=== PATIENT | male | born 1965 | race Caucasian/White ===

== ENCOUNTER 2024-06-18 07:54 | Outpatient (CLI) | payer BC, SELFPAY | END 2024-06-18 07:55 | disposition home or self-care (01) | LOC: INJ CL 07:58 | PROVIDERS: PCP Internal Medicine; Visit Provider Family Medicine | DX: M16.0 Bilateral primary osteoarthritis of hip (principal); M25.551 Pain in right hip; M25.552 Pain in left hip | CPT/HCPCS: 20610; 77002; J0702; Q9966 ==

== ENCOUNTER 2024-08-27 07:54 | Outpatient (CLI) | payer BC, SELFPAY | END 2024-08-27 07:55 | disposition home or self-care (01) | LOC: INJ CL 07:56 | PROVIDERS: PCP Internal Medicine; Visit Provider Family Medicine | DX: M54.16 Radiculopathy, lumbar region (principal); M51.369 Other intervertebral disc degeneration, lumbar region without mention of lumbar back pain or lower extremity pain | CPT/HCPCS: 62323; Q9966 ==

== ENCOUNTER 2024-10-01 08:17 | Day surgery (SDC) | payer BC, SELFPAY ==
[2024-10-01] VITALS (28 sets, daily range): BP systolic 105–186; BP diastolic 63–92; PULSE 62–103; RESP 14–18; TEMP 35.9–36.8; O2SAT 92–99; BMI 33.2
[2024-10-01] MEDS: LACTATED RINGERS 1000 ML 1,000 ML 100 ML IV ×2 (08:25→12:05)
[2024-10-01] MEDS: OXYCODONE (CR) 10 MG TAB.ER.12H PO (08:40)
[2024-10-01] MEDS: ACETAMINOPHEN 500 MG TABLET 1000 MG PO ×3 (08:40→20:23)
[2024-10-01] MEDS: CELECOXIB 200 MG CAPSULE PO ×2 (08:40→20:22)
[2024-10-01] MEDS: SODIUM CHLORIDE 0.9 % (FLUSH) 10 ML SYRINGE IVF ×2 (08:57→18:27)
[2024-10-01] MEDS: MIDAZOLAM HCL 1 MG/ML inj IVP (09:50)
--- NOTE | 2024-10-01 10:00 | SUR.PREOP ---
TIME?OUT:?3675 PT/Olivia MORTON RN/Sushma ALEXANDRA MDA?VERIFICATION?OF?SURGICAL?SITE,?PROCEDURE,?AND?CONSENT OBTAINED?PRIOR?TO?INVASIVE?PROCEDURE.
--- NOTE | 2024-10-01 10:04 | P.NB_ITS ---
Nerve Block Nerve Block Time Seen by Provider: 09:50 Date Seen: 10/01/24 Type of block requested by surgeon for post-operative analgesia: DEVIN/LFCN Side: right Time out performed: Yes Verification of patient name: Yes Verification of date of : Yes Site marking: site marked Name of person performing procedure: [place] Continuous monitoring Was continuous monitoring of O2 sat, B/P, nuclear monitoring technician, recorded every 15 minutes?: Yes Procedure Checklist: sterile prep, needles and gloves Ultrasound guided. Images saved: Yes Medications given in 5ml increments after negative aspiration: Ropivicaine %: 0.5 mL: 30 Needle gauge: 20 Precedex (mcg): 25 Patient tolerated procedure well: Yes Additional comments: Needle noted below psoas tendon needle noted adjacent to LFCN Block Charges Block Charge (with Pro Fee): Other Periph Nerve Block Use of Ultrasound Machine for Block: Yes- US Guidance/pain block
--- NOTE | 2024-10-01 10:04 | P.ANES_ITS ---
Anesthesia Charges Start Date/Time Anesthesia Start Date: 10/01/24 Anesthesia Start Time: 10:32 Stop Date/Time Anesthesia Stop Date: 10/01/24 Anesthesia Stop Time: 13:13 Coding CPT Codes CPT Codes: ANESTH HIP ARTHROPLASTY - 80359 ([id number]) P2 - PATIENT W/MILD SYST DISEASE, QK - RACK CLEANER 2-4 CNCRNT ANES PROC, QX - POLYSOMNOGRAPHER SVC W/ MD MED DIRECTION
--- NOTE | 2024-10-01 10:04 | W.ANESCHARGE ---
Anesthesia Charges Start Date/Time Anesthesia Start Date: 10/01/24 Anesthesia Start Time: 10:32 Stop Date/Time Anesthesia Stop Date: 10/01/24 Anesthesia Stop Time: 13:13 Coding CPT Codes CPT Codes: ANESTH HIP ARTHROPLASTY - 91703 ([id number]) P2 - PATIENT W/MILD SYST DISEASE, QK - ADVANCED MANUFACTURING VICE PRESIDENT 2-4 CNCRNT ANES PROC, QX - PEOPLESOFT HRMS DEVELOPER SVC W/ MD MED DIRECTION
--- NOTE | 2024-10-01 10:30 | CRLHL7_ITS ---
For Patients: As a result of the Cures Act, medical imaging exams and procedure reports are released immediately into your electronic medical record. You may view this report before your referring provider. If you have questions, please contact your health care provider. Indication: Hip replacement surgery Technique: AP hip fluoroscopic images. Fluoroscopy time 65.8 seconds. Findings/Impression: Hardware from a right total hip arthroplasty is in satisfactory position. Dictated by Manohar Vaughan MD @ 10/01/2024 12:48:45 PM (Electronically Signed)
[2024-10-01] MEDS: TRANEXAMIC ACID 100 MG/ML INJ 1000 MG IV (10:45)
--- NOTE | 2024-10-01 12:26 | CRLHL7_ITS ---
For Patients: As a result of the Cures Act, medical imaging exams and procedure reports are released immediately into your electronic medical record. You may view this report before your referring provider. If you have questions, please contact your health care provider. Indication: Postop CARLIN Technique: AP hip centered pelvis and lateral view right hip Findings/Impression: Hardware from a right total hip arthroplasty is in satisfactory position. Bone alignment is normal. No sign of acute fracture. Postop changes are within normal limits. Dictated by Manohar Vaughan MD @ 10/02/2024 10:21:50 AM (Electronically Signed)
--- NOTE | 2024-10-01 12:28 | P.ORPRC_ITS ---
Procedure Note Date of procedure: 10/01/24 Procedure: PREOPERATIVE DIAGNOSIS: Right hip osteoarthritis POSTOPERATIVE DIAGNOSIS: Right hip osteoarthritis NAME OF OPERATION: Right total hip arthroplasty SURGEON: Marco Chan MD MANAGER MARITIME: Jo Huggins PA-C, TAM Jean Baptiste IMPLANTS: 1. [employer] Vernon # 56 sector ingrowth cup 2. 36 x 56 +4 neutral polyethylene 3. Actis # 5 standard collared ingrowth stem 4. 36 + 1.5 ceramic femoral head ANESTHESIA: General ESTIMATED BLOOD LOSS: 300 cc COMPLICATIONS: None SPECIMENS: None DRAINS: None PREOPERATIVE ANTIBIOTICS: Ancef 2 g INDICATIONS: The patient is a 59-year-old with a longstanding history of robert re, unrelenting right hip pain secondary to end-stage right hip osteoarthritis. Despite appropriate nonoperative management, including activity modification, use of an assist device, anti-inflammatories, [id number] pain medication, physical therapy and injections, they continue to have pain and disability. Operative intervention was offered. The risks, benefits and expected outcomes were discussed in detail. These included but were not limited to: Infection, bleeding, injury to blood vessel or nerve, venous thromboembolism. All questions were answered to their satisfaction. Use of an preschool assistant teacher was necessary throughout the case for patient positioning and safety, soft tissue retraction and closure. PROCEDURE: The patient was placed supine on the [place] table. General Anesthesia was administered. The preschool assistant teacher made sure the patient was properly positioned. The right hip was prepped and draped in the usual sterile fashion. The image intensifier was brought in for a perfect AP pelvis and a perfect double tear drop AP view of each hip which were used for intraoperative templating with our fluoroscopic guide. A bikini incision was made parallel to the hip flexion crease. The preschool assistant teacher retracted the soft tissues to protect them. Subcutaneous dissection was taken with electrocautery to the superficial fascia. The fascia was divided in line with the incision. Blunt dissection was carried medially to the tensor fascia gurjit and sartorius interval. Deep dissection was carried with electrocautery. The circumflex vessels were cauterized and divided. The capsule was exposed and then divided in a T-fashion, tagged with #1 FiberWire sutures. Retractors were placed in the joint, held by the preschool assistant teacher. The corkscrew was placed in the femoral head. The neck cut was made in the subcapital region. We made a second neck cut more distal. The napkin ring of bone was removed. The femoral head was removed intact. Acetabular retractors were placed, held by the preschool assistant teacher. The labrum was sharply debrided. The capsule was released. The 43 mm reamer was used to the true medial wall. We then enlarged in 2 mm increments using the image intensifier for our reamer placement. We impacted the cup which had excellent purchase. We placed the polyethylene. Attention was then turned to the proximal femur. The limb was placed in 140 degrees of external rotation, maximum extension and adduction. The capsule was released to allow us to deliver the femur into the wound and complete the femoral side. Retractors were held by the preschool assistant teacher throughout the femoral preparation. The box packer and canal finder were used. Broaches were used to a stable size. The calcar reamer was used. Trial components were placed. The hip was reduced and was found to be stable with appropriate soft tissue tension. Length and offset had been nicely restored using the image intensifier and our fluoroscopic guide. Trial components were removed. The stem was impacted. We placed the femoral head. Again, the hip was reduced and was found to be stable with appropriate soft tissue tension. Length and offset had been nicely restored. The preschool assistant teacher did a three minute dilute Betadine solution soak. The preschool assistant teacher irrigated the wound with 3 liters of normal saline via pulse lavage. The preschool assistant teacher repaired the anterior capsule with a #1 Vicryl and our previously placed Ethibond sutures. The preschool assistant teacher closed the fascia over the tensor fascia gurjit with a #1 PDO Stratafix, subcutaneous tissues with 2-0 Vicryl, skin with a running 3-0 Stratafix and glue. A dry dressing was applied by the preschool assistant teacher. Sponge and needle counts were correct x 2. The patient tolerated the procedure well; there were no apparent complications. They were awakened and extubated in the operating room, sent to the Post-Anesthesia Care Unit in satisfactory condition. PLAN: 1. The patient will be mobilized with physical therapy, weight-bearing as tolerates 2. Xarelto x 5 days then aspirin x 30 days will be used for DVT prophylaxis 3. The patient will be discharged once medically appropriate
--- NOTE | 2024-10-01 13:11 | P.ANES_ITS ---
Anesthesia Charges Start Date/Time Anesthesia Start Date: 10/01/24 Anesthesia Start Time: 10:32 Stop Date/Time Anesthesia Stop Date: 10/01/24 Anesthesia Stop Time: 13:13 Coding CPT Codes CPT Codes: ANESTH HIP ARTHROPLASTY - 66164 ([id number]) P2 - PATIENT W/MILD SYST DISEASE, QK - MILLING MACHINE OPERATOR 2-4 CNCRNT ANES PROC
--- NOTE | 2024-10-01 13:11 | W.ANESCHARGE ---
Anesthesia Charges Start Date/Time Anesthesia Start Date: 10/01/24 Anesthesia Start Time: 10:32 Stop Date/Time Anesthesia Stop Date: 10/01/24 Anesthesia Stop Time: 13:13 Coding CPT Codes CPT Codes: ANESTH HIP ARTHROPLASTY - 70926 ([id number]) P2 - PATIENT W/MILD SYST DISEASE, QK - BODY TECHNICIAN/PAINTER 2-4 CNCRNT ANES PROC
[2024-10-01] MEDS: ONDANSETRON 2 MG/ML inj 4 MG IVP ×2 (13:50→15:37)
[2024-10-01] MEDS: LACTATED RINGERS 1000 ML 1,000 ML 75 ML IV (14:16)
[2024-10-01] MEDS: CEFAZOLIN 2 GM in 0.9 % SODIUM CHLORIDE Mini-bag 100 ML IVPB (16:58)
--- NOTE | 2024-10-01 17:52 | PM.IMCN1 ---
Date of Consult Patient: Cara Patient Consult date: 10/01/24 Requesting Physician: Orthopedics Primary Care Provider: Mone Melendez MD Consult Narrative Narrative: Brent Ralph is a 59 year old male admitted to the hospital for right hip arthroplasty. Procedure performed by Dr. Chan. No complications. He request consultation for management of medical problems following surgery. Patient reports generally doing well after surgery except having persisting nausea and vomiting. He has had this after previous surgeries as well. Pain is well controlled. No shortness of breath. He was feeling well prior to surgery other than his hip pain. He also was having urinary retention postoperatively he was straight cath for 700 mL of urine. Patient does note that he has had some urinary frequency and nocturia as a chronic problem. He has sleep apnea and has brought his home CPAP to the hospital. He has diabetes mellitus. He reports blood sugars have been generally well controlled. He does not check his blood sugars regularly at home. Hemoglobin A1c was 7.3 on September 04. Review of Systems Narrative: He has had no other health concerns, recent illnesses or injuries. [facility] Medical History (Updated 10/01/24 @ 18:04 by Ricardo Garza MD) Urinary retention ?R33.9 - Retention of urine, unspecified (ICD-10) Type 2 diabetes mellitus ?E11.9 - Type 2 diabetes mellitus without complications (ICD-10) Vertigo ?R42 - Dizziness and giddiness (ICD-10) Hearing loss ?H91.90 - Unspecified hearing loss, unspecified ear (ICD-10) Osteoarthritis of right hip ?M16.11 - Unilateral primary osteoarthritis, right hip (ICD-10) Osteoarthritis of left hip ?M16.12 - Unilateral primary osteoarthritis, left hip (ICD-10) Chronic low back pain ?M54.50 - Low back pain, unspecified (ICD-10) ?G89.29 - Other chronic pain (ICD-10) RIVER (obstructive sleep apnea) ?G47.33 - Obstructive sleep apnea (adult) (pediatric) (ICD-10) Depression ?F32.A - Depression, unspecified (ICD-10) Hypertension ?I10 - Essential (primary) hypertension (ICD-10) Social anxiety disorder ?F40.10 - Social phobia, unspecified (ICD-10) Lumbar facet arthropathy ?M47.816 - Spondylosis without myelopathy or radiculopathy, lumbar region (ICD-10) Lumbar spondylosis ?M47.816 - Spondylosis without myelopathy or radiculopathy, lumbar region (ICD-10) Lumbar radiculopathy ?M54.16 - Radiculopathy, lumbar region (ICD-10) Chronic bilateral low back pain without sciatica ?M54.50 - Low back pain, unspecified (ICD-10) ?G89.29 - Other chronic pain (ICD-10) Tinnitus, bilateral ?H93.13 - Tinnitus, bilateral (ICD-10) Allergic rhinitis, cause unspecified ?J30.9 - Allergic rhinitis, unspecified (ICD-10) Surgical History (Updated 10/01/24 @ 17:59 by Ricardo Garza MD) History of total right hip arthroplasty (10/01/24) ?Z96.641 - Presence of right artificial hip joint (ICD-10) History of arthroscopy of right shoulder (~2009) ?Z98.890 - Other specified postprocedural states (ICD-10) S/P ACL reconstruction (1978) ?Z98.890 - Other specified postprocedural states (ICD-10) S/P arthroscopic knee surgery (1982) ?Z98.890 - Other specified postprocedural states (ICD-10) Family History (Updated 10/01/24 @ 18:00 by Ricardo Garza MD) Father Diabetes Melanoma Mother Stroke Social History (Updated 10/01/24 @ 18:01 by Ricardo Garza MD) Narrative: He lives with his in [place]. He does not smoke. He does not drink alcohol. What is your current living situation?: I presently have a place to live Smoking Status: Never smoker Do you use any of these nicotine containing products: None Second hand tobacco smoke exposure: No How often do you have a drink containing alcohol: never AUDIT-C Alcohol total score: 0 Non-prescribed substance use: denies use Caffeine: Yes Meds Home Medications and Allergies Home Medications ?Medication ?Instructions ?Recorded ?Confirmed ?Type atorvastatin 20 mg tablet 20 mg PO DAILY 08/01/24 10/01/24 History azelastine 137 mcg (0.1 %) nasal 2 spray intranasal BID 08/01/24 10/01/24 History spray celecoxib 200 mg capsule 200 mg PO BID 08/01/24 10/01/24 History Held on 10/01/24. Instructions: Resume on 10/07/24. fluticasone propionate 50 2 spray intranasal DAILY 08/01/24 10/01/24 History mcg/actuation nasal spray,suspension fluoxetine 40 mg capsule 40 mg PO QAM 08/07/24 10/01/24 History fexofenadine 180 mg tablet 180 mg PO DAILY 09/30/24 10/01/24 History (Wal-Fex Allergy) acetaminophen 500 mg capsule 500 - 1,000 mg (1 - 2 x 500 mg) PO 10/01/24 Rx Q6H PRN pain #100 caps aspirin 81 mg chewable tablet 81 mg PO BID for DVT prophylaxis 10/01/24 Rx (Aspirin Childrens) 30 days #60 tabs dulaglutide 3 mg/0.5 mL 3 mg subcut .week 10/01/24 10/01/24 History subcutaneous pen injector (Trulicity) glipizide 10 mg tablet 10 mg PO DAILY 10/01/24 10/01/24 History oxycodone 5 mg tablet 2.5 - 5 mg (0.5 - 1 x 5 mg) PO 10/01/24 Rx Q4-6H PRN Pain #42 tabs rivaroxaban 10 mg tablet (Xarelto) 10 mg PO DAILY DVT prophylaxis 4 10/01/24 Rx days #4 tabs sennosides 8.6 mg tablet (Senna 17.2 mg (2 x 8.6 mg) PO BID PRN 10/01/24 Rx Lax) constipation #100 tabs tamsulosin 0.4 mg capsule 0.4 mg PO QHS #30 caps 10/01/24 Rx Home Medication Comments: Preoperatively he held his aspirin and Trulicity Allergies Allergy/AdvReac Type Severity Reaction Status Date / Time metformin AdvReac Mild Nausea Verified 10/01/24 08:51 hayfever Allergy Mild Uncoded 08/27/24 15:02 Exam Narrative: Exam Narrative: He is alert and appears in no distress. He gives his own history. Oropharynx with small airway and prominent tongue. Neck is supple without mass or adenopathy. Respirations are clear to auscultation. Cardiovascular: S1, S2, regular rate and rhythm. Abdomen is soft without tenderness or mass. Umbilical hernia noted, without significant tenderness. Lower Extremities with intact pulses, strength, motion in the ankles. No significant edema. Const: Vital Signs, click to edit/add: Vital Signs - 24 hr 10/01/24 08:52 10/01/24 09:50 10/01/24 13:10 Temperature 97.9 F 97.8 F Pulse Rate 62 63 70 Pulse Rate [Pulse Oximeter] Respiratory Rate 16 16 14 Blood Pressure 162/92 H 156/84 H 146/81 H Blood Pressure [Le ft Arm] Pulse Oximetry 98 98 94 Oxygen Delivery Me thod Room Air Non Rebreather Mas k Room Air Oxygen Flow Rate 10 10/01/24 13:15 10/01/24 13:20 10/01/24 13:25 Temperature Pulse Rate 75 72 72 Pulse Rate [Pulse Oximeter] Respiratory Rate 14 14 14 Blood Pressure 139/77 158/86 H 157/81 H Blood Pressure [Le ft Arm] Pulse Oximetry 93 95 98 Oxygen Delivery Me thod Room Air Room Air Room Air Oxygen Flow Rate 10/01/24 13:30 10/01/24 13:35 10/01/24 13:40 Temperature 97.5 F L Pulse Rate 70 73 70 Pulse Rate [Pulse Oximeter] Respiratory Rate 14 14 14 Blood Pressure 151/83 H 147/77 H 158/84 H Blood Pressure [Le ft Arm] Pulse Oximetry 95 93 96 Oxygen Delivery Me thod Room Air Room Air Room Air Oxygen Flow Rate 10/01/24 13:45 10/01/24 13:50 10/01/24 13:55 Temperature Pulse Rate 70 92 79 Pulse Rate [Pulse Oximeter] Respiratory Rate 14 14 14 Blood Pressure 137/82 186/89 H 146/73 H Blood Pressure [Le ft Arm] Pulse Oximetry 97 99 98 Oxygen Delivery Me thod Room Air Room Air Room Air Oxygen Flow Rate 10/01/24 14:00 10/01/24 14:09 10/01/24 14:09 Temperature 96.8 F L Pulse Rate 75 Pulse Rate [Pulse Oximeter] 66 Respiratory Rate 14 16 16 Blood Pressure 151/81 H Blood Pressure [Le ft Arm] 139/77 Pulse Oximetry 98 98 98 Oxygen Delivery Me thod Room Air Room Air Room Air Oxygen Flow Rate 10/01/24 14:15 10/01/24 14:30 10/01/24 14:38 Temperature 97.5 F L Pulse Rate Pulse Rate [Pulse Oximeter] 82 81 Respiratory Rate 16 16 14 Blood Pressure Blood Pressure [Le ft Arm] 152/63 H 162/86 H Pulse Oximetry 97 98 98 Oxygen Delivery Me thod Room Air Room Air Room Air Oxygen Flow Rate 10 10/01/24 14:38 10/01/24 14:45 10/01/24 15:00 Temperature Pulse Rate Pulse Rate [Pulse Oximeter] 84 Respiratory Rate 14 18 18 Blood Pressure Blood Pressure [Le ft Arm] 138/81 Pulse Oximetry 98 98 95 Oxygen Delivery Me thod Room Air Room Air Room Air Oxygen Flow Rate 10 10/01/24 15:00 10/01/24 15:01 10/01/24 15:30 Temperature 96.7 F L Pulse Rate Pulse Rate [Pulse Oximeter] 83 81 83 Respiratory Rate 18 18 18 Blood Pressure Blood Pressure [Le ft Arm] 131/83 142/83 H Pulse Oximetry 94 95 Oxygen Delivery Me thod Room Air Room Air Oxygen Flow Rate 10/01/24 16:00 Temperature 96.8 F L Pulse Rate Pulse Rate [Pulse Oximeter] 94 Respiratory Rate 18 Blood Pressure Blood Pressure [Le ft Arm] 148/79 H Pulse Oximetry 96 Oxygen Delivery Me thod Room Air Oxygen Flow Rate Documenting provider has reviewed patient's vital signs: yes Assessment and Plan Assessment and plan (1) History of total right hip arthroplasty: Problem comment: Right total hip arthroplasty (10/01/2024, Dr. Chan) Status: Acute (2) Postoperative vomiting: Problem comment: Likely adverse reaction to general anesthesia. Has had this problem on previous surgeries. Symptomatic treatment and monitor Status: Acute (3) Urinary retention: Problem comment: 700 mL residual urine. Continue to check bladder scans and straight cath as needed. Initiate Flomax with outpatient follow-up. Status: Acute (4) Hypertension: Problem comment: Resume blood pressure medications as tolerated. Status: Acute (5) RIVER (obstructive sleep apnea): Problem comment: Home CPAP Status: Acute (6) Type 2 diabetes mellitus: Status: Acute Plan 59-year-old male admitted to the hospital following right hip arthroplasty for management of pain, therapy, urinary retention, postoperative vomiting, RIVER. Total Time Spent Total Time Spent: Total time spent today is 50 minutes in reviewing outside records and coordination of care and discussing with patient, his and other providers ongoing management of above medical problems
[2024-10-01] MEDS: INSULIN ASPART 100 UNIT/ML SUBCUT ×2 (18:28→20:20)
[2024-10-01] MEDS: PROCHLORPERAZINE 5 MG/ML VIAL 10 MG IV (18:28)
--- NOTE | 2024-10-01 18:48 | PC.NURSE ---
Shift Note 15-19: Pt friendly and cooperative, a/o and able to verbalize his needs. Surgical dressing C,D,&I with active ice in place. CMS intact. Pt c/o nausea, PRN zofran given. Pt experienced breakthrough nausea/emesis especially with movement. Order obtained for PRN compazine in addition to zofran. Pt is tolerating sips of clears at this time. Pt also experiencing difficulty voiding. He was able to void 175cc and has better success voiding with urinal while standing. Plan to bladder scan patient after his next void. Rating pain 4-6/10, PRN dilaudid given.
[2024-10-01] MEDS: TAMSULOSIN HCL 0.4 MG CAPSULE PO (20:22)
[2024-10-01] MEDS: SENNOSIDES 1 TAB TABLET 2 TAB PO (20:23)
[2024-10-02] MEDS: CEFAZOLIN 2 GM in 0.9 % SODIUM CHLORIDE Mini-bag 100 ML IVPB (00:16)
[2024-10-02] MEDS: ACETAMINOPHEN 500 MG TABLET 1000 MG PO ×2 (02:21→09:51)
[2024-10-02 02:23] VITALS: BP 130/74; PULSE 70; RESP 18; TEMP 36.6; O2SAT 94
[2024-10-02 06:01] LABS: Hematocrit* 31.9 % (37.0-53.0); Hemoglobin* 11.1 gm/dL (13.5-17.5); Immature Granulocytes Pct Auto 0.4 %; Mean Corpuscular HGB Conc 35 gm/dL (32-36); Mean Corpuscular Hemoglobin 30 pg (26-34); Mean Corpuscular Volume 86 fL (80-100); RDW Coefficient of Variation % 13.8 % (11.5-15.5); Red Blood Count* 3.70 m/uL (4.30-5.90); White Blood Count* 13.87 K/uL (4.50-11.00)
[2024-10-02 06:02] LABS: Immature Granulocytes Abs Auto 0.10 K/uL (0.00-0.30); Lymphocytes Absolute Auto 0.90 K/uL (0.90-2.90); Slide Review Reflex No
[2024-10-02 06:16] LABS: Chloride* 101 mmol/L (96-114); Sodium* 134 mmol/L (135-149)
[2024-10-02 06:17] LABS: Potassium* 3.9 mmol/L (3.6-5.1)
[2024-10-02 06:20] LABS: Anion Gap 11 mEq/L (7-15); Blood Urea Nitrogen* 24 mg/dL (7-30); Calcium* 8.6 mg/dL (8.4-10.6); Carbon Dioxide* 22 mmol/L (20-32); Creatinine* 1.4 mg/dL (0.5-1.5); Est. Creatinine Clearance* 53.61; Estimated Glomerular Filt Rate 57 ml/min; Glucose* 293 mg/dL (60-115)
[2024-10-02 07:00] VITALS: BP 130/69; PULSE 81; RESP 18; TEMP 35.9; O2SAT 95
[2024-10-02] MEDS: ATORVASTATIN CALCIUM 10 MG TABLET 20 MG PO (07:54)
[2024-10-02] MEDS: RIVAROXABAN 10 MG TABLET PO (07:54)
[2024-10-02] MEDS: FEXOFENADINE 180 MG TABLET PO (07:55)
[2024-10-02] MEDS: INSULIN ASPART 100 UNIT/ML SUBCUT (08:01)
--- NOTE | 2024-10-02 08:14 | PM.ORPN ---
Subjective Subjective Time Seen by Provider: 07:30 Date Seen: 10/02/24 Principal diagnosis: Status post right hip replacement Interval history: Brent is comfortable. He will be discharging to home today. He has been able to void this morning. Ortho Exam Narrative Exam Narrative: Alert and oriented x3. Patient is in no acute distress. Converses without labored breathing. Hearing is grossly intact. Ambulates with a walker. Examination of the right hip shows the dressing is in place and intact. There is no erythema or warmth or sign of infection. Mild ecchymosis. Very minimal edema about the thigh. CMS intact right lower extremity. Bilateral calves are soft and nontender Const Vital Signs, click to edit/add: Vital Signs - 24 hr 10/01/24 08:52 10/01/24 09:50 10/01/24 13:10 Temperature 97.9 F 97.8 F Pulse Rate 62 63 70 Pulse Rate [Pulse Oximeter] Respiratory Rate 16 16 14 Blood Pressure 162/92 H 156/84 H 146/81 H Blood Pressure [Left Arm] Pulse Oximetry 98 98 94 Oxygen Delivery Method Room Air Non Rebreather Mask Room Air Oxygen Flow Rate 10 10/01/24 13:15 10/01/24 13:20 10/01/24 13:25 Temperature Pulse Rate 75 72 72 Pulse Rate [Pulse Oximeter] Respiratory Rate 14 14 14 Blood Pressure 139/77 158/86 H 157/81 H Blood Pressure [Left Arm] Pulse Oximetry 93 95 98 Oxygen Delivery Method Room Air Room Air Room Air Oxygen Flow Rate 10/01/24 13:30 10/01/24 13:35 10/01/24 13:40 Temperature 97.5 F L Pulse Rate 70 73 70 Pulse Rate [Pulse Oximeter] Respiratory Rate 14 14 14 Blood Pressure 151/83 H 147/77 H 158/84 H Blood Pressure [Left Arm] Pulse Oximetry 95 93 96 Oxygen Delivery Method Room Air Room Air Room Air Oxygen Flow Rate 10/01/24 13:45 10/01/24 13:50 10/01/24 13:55 Temperature Pulse Rate 70 92 79 Pulse Rate [Pulse Oximeter] Respiratory Rate 14 14 14 Blood Pressure 137/82 186/89 H 146/73 H Blood Pressure [Left Arm] Pulse Oximetry 97 99 98 Oxygen Delivery Method Room Air Room Air Room Air Oxygen Flow Rate 10/01/24 14:00 10/01/24 14:09 10/01/24 14:09 Temperature 96.8 F L Pulse Rate 75 Pulse Rate [Pulse Oximeter] 66 Respiratory Rate 14 16 16 Blood Pressure 151/81 H Blood Pressure [Left Arm] 139/77 Pulse Oximetry 98 98 98 Oxygen Delivery Method Room Air Room Air Room Air Oxygen Flow Rate 10/01/24 14:15 10/01/24 14:30 10/01/24 14:38 Temperature 97.5 F L Pulse Rate Pulse Rate [Pulse Oximeter] 82 81 Respiratory Rate 16 16 14 Blood Pressure Blood Pressure [Left Arm] 152/63 H 162/86 H Pulse Oximetry 97 98 98 Oxygen Delivery Method Room Air Room Air Room Air Oxygen Flow Rate 10 10/01/24 14:38 10/01/24 14:45 10/01/24 15:00 Temperature Pulse Rate Pulse Rate [Pulse Oximeter] 84 Respiratory Rate 14 18 18 Blood Pressure Blood Pressure [Left Arm] 138/81 Pulse Oximetry 98 98 95 Oxygen Delivery Method Room Air Room Air Room Air Oxygen Flow Rate 10 10/01/24 15:00 10/01/24 15:01 10/01/24 15:30 Temperature 96.7 F L Pulse Rate Pulse Rate [Pulse Oximeter] 83 81 83 Respiratory Rate 18 18 18 Blood Pressure Blood Pressure [Left Arm] 131/83 142/83 H Pulse Oximetry 94 95 Oxygen Delivery Method Room Air Room Air Oxygen Flow Rate 10/01/24 16:00 10/01/24 17:00 10/01/24 17:55 Temperature 96.8 F L 97.5 F L 98.1 F Pulse Rate Pulse Rate [Pulse Oximeter] 94 89 91 Respiratory Rate 18 18 18 Blood Pressure Blood Pressure [Left Arm] 148/79 H 157/82 H 150/88 H Pulse Oximetry 96 98 98 Oxygen Delivery Method Room Air Room Air Room Air Oxygen Flow Rate 10/01/24 18:55 10/01/24 19:55 10/01/24 23:00 Temperature 98.2 F 98.2 F Pulse Rate Pulse Rate [Pulse Oximeter] 103 H 103 H 92 Respiratory Rate 18 18 18 Blood Pressure Blood Pressure [Left Arm] 105/73 145/86 H Pulse Oximetry 92 96 Oxygen Delivery Method Room Air CPAP Oxygen Flow Rate 10/01/24 23:00 10/01/24 23:46 10/02/24 02:23 Temperature 98.1 F 98 F Pulse Rate Pulse Rate [Pulse Oximeter] 90 70 Respiratory Rate 18 18 18 Blood Pressure Blood Pressure [Left Arm] 121/82 130/74 Pulse Oximetry 97 97 94 Oxygen Delivery Method Room Air CPAP Room Air Room Air Oxygen Flow Rate Assessment and Plan Assessment and plan (1) History of total right hip arthroplasty: Problem details: Right total hip arthroplasty (10/01/2024, Dr. Chan) Status: Acute Assessment and Plan: Plan for discharge is today, and when they meets discharge criteria. DVT prophylaxis upon discharge includes Xarelto 10mg daily for a total of 5 days, then Aspirin 81mg twice daily for 30 days. Remove dressing 1 week. Observe wound and phone Orthopedics with any questions or concerns Use Ice on operative hip unrestricted. Return to clinic in 7-10 days for a wound check Return to clinic in 6 weeks with surgeon Minimize narcotic use. Wean off and discontinue soon as possible. Activities as tolerated. No strenuous activity. Attend outpt PT
[2024-10-02] MEDS: SENNOSIDES 1 TAB TABLET 2 TAB PO (09:51)
[2024-10-02] MEDS: FLUOXETINE HCL 20 MG CAPSULE 40 MG PO (09:52)
--- NOTE | 2024-10-02 10:15 | PC.SOCIAL ---
Discharge planning: SW met with patient and patient's . Patient reports that he is doing okay, but feels may have some challenges with having to slow down and not be busy. Patient explains he will get through it, just isn't looking forward to it. Patient's states she will be there for support and that they have a daughter who is supportive too. Patient and have no concerns at this time.
--- NOTE | 2024-10-02 10:22 | PC.NURSE ---
Discharge Note (261)? ? Patient has been very cooperative and pleasant throughout shift. Patient was admitted after a total right hip arthroplasty. Surgical site is dry and intact. Lung sounds are clear throughout; bowel sounds are active all quadrants. Patient is afebrile, vitally stable, and pain control has been administered. Mobilization is good SBA with walker. Patient was discharged at 11:17 am.
== END 2024-10-02 11:17 | disposition home or self-care (01) ==
LOC: OR 08:19 → MEDSURG 08:20
PROVIDERS: Family Medicine; PCP Internal Medicine; Visit Provider Orthopaedic Surgery
PROC: (CPT 27130; principal; 2024-10-01 10:30)
DX: M16.11 Unilateral primary osteoarthritis, right hip (principal); G89.18 Other acute postprocedural pain; R11.2 Nausea with vomiting, unspecified; E11.9 Type 2 diabetes mellitus without complications; R33.9 Retention of urine, unspecified; R39.15 Urgency of urination; R35.1 Nocturia; G47.33 Obstructive sleep apnea (adult) (pediatric); Z99.89 Dependence on other enabling machines and devices; I10 Essential (primary) hypertension; Z79.85 Long-term (current) use of injectable non-insulin antidiabetic drugs; Z79.82 Long term (current) use of aspirin
CPT/HCPCS: 27130; 01214; 36415; 51702; 51798; 64450; 73501; 76000; 76942; 80048; 82962; 85025; 86850; 86900; 86901; 97110; 97116; 97161; 97165; 97535; G0463; A9270; C1776; J0690; J0780; J1100; J1171; J2250; J2405; J2704; J2795; J3010; J3490; J7120

== ENCOUNTER 2024-12-26 09:38 | Day surgery (SDC) | payer BC, SELFPAY ==
[2024-12-26] VITALS (22 sets, daily range): BP systolic 133–178; BP diastolic 72–91; PULSE 54–87; RESP 12–20; TEMP 36.2–37.2; O2SAT 91–99; BMI 35.2
[2024-12-26] MEDS: INSULIN REGULAR, HUMAN 100 UNIT/ML VIAL SUBCUT ×2 (10:32→14:44)
[2024-12-26] MEDS: LACTATED RINGERS 1000 ML 1,000 ML 100 ML IV ×2 (10:35→12:40)
[2024-12-26] MEDS: SODIUM CHLORIDE 0.9 % (FLUSH) 10 ML SYRINGE IVF (10:35)
--- NOTE | 2024-12-26 10:40 | W.PM.H&PU ---
History & Physical Update History & Physical Update H&P Reviewed and patient assessed: No changes noted
--- NOTE | 2024-12-26 10:41 | CRLHL7_ITS ---
For Patients: As a result of the Cures Act, medical imaging exams and procedure reports are released immediately into your electronic medical record. You may view this report before your referring provider. If you have questions, please contact your health care provider. Indication: Postop hip Technique: AP hip centered pelvis and lateral view left hip Findings/Impression: Hardware from a left total hip arthroplasty is in satisfactory position. Bone alignment is normal. No sign of acute fracture. Postop changes are within normal limits. Dictated by Manohar Vaughan MD @ 12/27/2024 6:42:49 AM (Electronically Signed)
--- NOTE | 2024-12-26 11:28 | CRLHL7_ITS ---
For Patients: As a result of the Cures Act, medical imaging exams and procedure reports are released immediately into your electronic medical record. You may view this report before your referring provider. If you have questions, please contact your health care provider. Indication: Hip replacement surgery Technique: AP hip fluoroscopic image. Fluoroscopy time 21.3 seconds. Findings/Impression: Hardware from a left total hip arthroplasty is in satisfactory position. Dictated by Manohar Vaughan MD @ 12/26/2024 3:34:21 PM (Electronically Signed)
[2024-12-26] MEDS: SCOPOLAMINE 1 MG/3 DAY PATCH 1 PATCH TRANSDERMA (11:45)
[2024-12-26] MEDS: MIDAZOLAM HCL 1 MG/ML inj IVP (11:47)
--- NOTE | 2024-12-26 11:57 | SUR.PREOP ---
TIME?OUT:?1145, left hip PT/RN/MDA?VERIFICATION?OF?SURGICAL?SITE,?PROCEDURE,?AND?CONSENT OBTAINED?PRIOR?TO?INVASIVE?PROCEDURE.
[2024-12-26] MEDS: TRANEXAMIC ACID 100 MG/ML INJ 1000 MG IV (12:15)
--- NOTE | 2024-12-26 12:51 | SUR.OPER ---
PATIENT QUESTIONS ANSWERED SATISFACTORILY PREOPERATIVELY. PATIENT BROUGHT TO OR #2 PER CART AFTER ADMINISTRATION OF A BLOCK. Patient positioned supine on OR #2 bed. The perioperative team supported arms bilaterally on arm boards. Final approval of positioning by surgeon.
--- NOTE | 2024-12-26 13:46 | PM.ORPRC ---
Procedure Note Date of procedure: 12/26/24 Procedure: PREOPERATIVE DIAGNOSIS: 1. Left hip osteoarthritis, severe, primary POSTOPERATIVE DIAGNOSIS: 1. Left hip osteoarthritis, severe, primary PROCEDURE: 1. Left total hip arthroplasty-anterior approach - 25% added time and difficulty for this case due to the patient's body habitus (BMI 35.2; 105 kg). 2. Intraoperative fluoroscopy interpreted by Antonino Whiting M.D. for intraoperative evaluation of implant positioning as well as component alignment, leg length, and offset. ]Fluoroscopy time was 2:13. SURGEON: Antonino Whiting MD. ELECTRICAL TESTER BATTERY: KANDY Bhatia PA-C - Of note, a skilled therapy administrative assistant was critical for this case to aid in patient positioning, tissue retraction, limb manipulation/positioning, dislocation/relocation, patient safety, and closure. ANESTHESIA: General endotracheal anesthetic EBL: 300 mL IMPLANTS: DePuy J[employer]J uncemented total hip [place] cup size 56, hole eliminator, +4 neutral liner Actis stem, standard offset, size 5 +8.5 mm ceramic 36 mm head. COMPLICATIONS: None evident INDICATIONS: The patient is a pleasant 59-year-old male who has experienced severe left hip pain and difficulty bearing weight. Workup included x-rays which revealed severe osteoarthrosis in the hip. Given the deformity, the dysfunction, and the pain, as well as the failure of nonoperative management, recommendation was made for surgery. FINDINGS: Full-thickness chondral loss diffusely throughout the femoral head and acetabulum. Osteophytes on the femoral head/neck junction. Very tight capsular tissue circumferentially. Moderate effusion upon entering the joint. DESCRIPTION OF PROCEDURE: Following a thorough discussion of risks, benefits, and alternatives consent was obtained and the left hip was marked. The patient was brought to the operating room and placed supine on the operating table. Induction of anesthesia was undertaken. 2 g IV Ancef and 1 g tranexamic acid was administered within 1 hr of incision preoperatively. Proper time-out was performed identifying proper patient, site, procedure. The operative extremity was prepped and draped in the appropriate sterile fashion using ChloraPrep after the patient was positioned on the Lynd table with head in neutral alignment and all bony prominences well padded. C-arm fluoroscopic imaging was utilized to confirm proper pelvis rotation and position, and to get true AP films of both the contralateral left, and the affected left hip. This is for comparison. A longitudinal incision was made starting approximately 1 cm distal to the ASIS, and 2-3 cm lateral. The incision was extended distally aiming toward the fibular head. Sharp incision through skin and bovie cautery through the subcutaneous tissue allowed identification of the TFL fascia. This was sharply divided, and the fascia bluntly released from the muscle fibers as we dissected medial. Upon coming to the medial border, we were able to retract the TFL laterally, and penetrated the deeper fascia and identify the crossing circumflex vessels. These were ligated/cauterized. The rectus was elevated from the capsule, and retractors placed laterally and medially along the femoral neck to help with visualization of the capsule. We then performed an inverted T capsulotomy. The capsule was tagged for later repair. Retractors were placed inside the capsule. The femoral neck was visualized after releasing medially down to the lesser trochanter, along the saddle laterally, and up onto the acetabulum. The femoral neck cut was made in line with our preoperative templating. The head was removed in a single piece, and sized. We turned our attention to acetabular preparation. Initially, the labrum was resected from around the perimeter, the pulvinar was excised, allowing us to visualize the false wall. We started the reaming with a 43 mm reamer. This was medialized down to the true wall. We then enlarged our reamers sequentially up to one size less than the selected cup size. We trialed at the same size and found it to have an excellent fit. The selected cup was then opened, inserted, and impacted in line with the goal of 40-45? of abduction, and 20-25? of anteversion. This was confirmed on C-arm fluoroscopic imaging to be in the appropriate/goal position. Once the cup was placed we placed a hole eliminator and a liner consistent with preop planning. Attention was turned to the femoral preparation. The limb was extended, externally rotated, and adducted. The posteromedial capsule was released, as retractors were placed allowing excellent access to the proximal femur. Initially a box lining machine feeder was followed by canal finder followed by various broaches. We broached sequentially up to size noted above, found it to have excellent rotational control, and trialing various heads and necks, revealed that appropriate neck offset, and the above noted head size provided the greatest stability, and rastafarian of length, and offset. C-arm fluoroscopic imaging confirmed position of the stem, as well as leg lengths, which were compared with the pre procedure all fluoroscopic images. Trial implants were removed, the real femoral stem inserted, as was the ceramic head. After reducing, the leg was placed through range of motion and stability was confirmed anterior, posterior, and lateral. A 3 min Betadine soak was then performed, and thorough irrigation with normal saline followed. Closure of the capsule was performed with #1 PDS. Bleeding was confirmed to be controlled at this stage, and the TFL fascia was closed with #0 strata fix. Subcutaneous, and subcuticular closure was performed with 2-0 Stratafix and 4-0 Stratafix, respectively. Dressings were applied, and the patient was awoken from anesthesia and transferred the PACU in stable condition. A skilled therapy administrative assistant was critical for this case to aid in patient positioning, tissue retraction, proximal femur exposure, limb manipulation/positioning, dislocation/relocation, patient safety, and closure. Again, 25% added time and difficulty for this case due to the patient's body habitus (BMI 35.2; 105 kg) which required longer and more retractors, increased number of assistants. PLAN: 1. Weight bear as tolerated operative extremity. 2. 23 hr perioperative antibiotics. 3. Ice. 4. PT/OT consults for ambulation assistance/mobility education. 5. Social work consult for discharge planning. 6. DVT prophylaxis with at SCDs and Xarelto x5 days followed by aspirin for a total of 1 month.
--- NOTE | 2024-12-26 14:39 | P.ANES_ITS ---
Anesthesia Charges Start Date/Time Anesthesia Start Date: 12/26/24 Anesthesia Start Time: 12:05 Stop Date/Time Anesthesia Stop Date: 12/26/24 Anesthesia Stop Time: 14:27 Coding CPT Codes CPT Codes: ANESTH HIP ARTHROPLASTY - 62245 ([id number]) P3 - PATIENT W/SEVERE SYS DISEASE, QK - DIVISION SERVICE MANAGER 2-4 CNCRNT ANES PROC, QX - DIALS INSPECTOR SVC W/ MD MED DIRECTION
--- NOTE | 2024-12-26 14:39 | W.ANESCHARGE ---
Anesthesia Charges Start Date/Time Anesthesia Start Date: 12/26/24 Anesthesia Start Time: 12:05 Stop Date/Time Anesthesia Stop Date: 12/26/24 Anesthesia Stop Time: 14:27 Coding CPT Codes CPT Codes: ANESTH HIP ARTHROPLASTY - 17697 ([id number]) P3 - PATIENT W/SEVERE SYS DISEASE, QK - MUCKING MACHINE OPERATOR 2-4 CNCRNT ANES PROC, QX - BUSINESS AND FINANCIAL COUNSEL SVC W/ MD MED DIRECTION
--- NOTE | 2024-12-26 14:47 | P.ANES_ITS ---
Anesthesia Charges Start Date/Time Anesthesia Start Date: 12/26/24 Anesthesia Start Time: 12:05 Stop Date/Time Anesthesia Stop Date: 12/26/24 Anesthesia Stop Time: 14:27 Coding CPT Codes CPT Codes: ANESTH HIP ARTHROPLASTY - 81204 ([id number]) QK - JAVA SUPPORT ENGINEER 2-4 CNCRNT ANES PROC, QX - PARK WORKER SUPERVISOR SVC W/ MD MED DIRECTION, P3 - PATIENT W/SEVERE SYS DISEASE
--- NOTE | 2024-12-26 14:47 | W.ANESCHARGE ---
Anesthesia Charges Start Date/Time Anesthesia Start Date: 12/26/24 Anesthesia Start Time: 12:05 Stop Date/Time Anesthesia Stop Date: 12/26/24 Anesthesia Stop Time: 14:27 Coding CPT Codes CPT Codes: ANESTH HIP ARTHROPLASTY - 41856 ([id number]) QK - MEDICAL SONOGRAPHER 2-4 CNCRNT ANES PROC, QX - HOSIERY PAIRER SVC W/ MD MED DIRECTION, P3 - PATIENT W/SEVERE SYS DISEASE
--- NOTE | 2024-12-26 14:48 | P.NB_ITS ---
Nerve Block Nerve Block Time Seen by Provider: :45 Date Seen: 12/26/24 Type of block requested by surgeon for post-operative analgesia: DEVIN/LFCN Side: left Time out performed: Yes Verification of patient name: Yes Verification of date of : Yes Site marking: site marked Name of person performing procedure: [place] Continuous monitoring Was continuous monitoring of O2 sat, B/P, satellite project site monitor, recorded every 15 minutes?: Yes Procedure Checklist: sterile prep, needles and gloves Ultrasound guided. Images saved: Yes Medications given in 5ml increments after negative aspiration: Ropivicaine %: 0.5 mL: 30 Needle gauge: 20 Precedex (mcg): 25 Patient tolerated procedure well: Yes Additional comments: Needle noted below psoas tendon needle noted adjacent to LFCN Block Charges Block Charge (with Pro Fee): Other Periph Nerve Block Use of Ultrasound Machine for Block: Yes- US Guidance/pain block
--- NOTE | 2024-12-26 15:04 | SUR.PHASEI ---
patient met discharge criteria per anesthesia
[2024-12-26] MEDS: ACETAMINOPHEN 500 MG TABLET 1000 MG PO ×2 (15:37→21:09)
[2024-12-26] MEDS: LACTATED RINGERS 1000 ML 1,000 ML 75 ML IV (17:42)
--- NOTE | 2024-12-26 17:55 | PM.IMCN1 ---
Date of Consult Patient: Cara Patient Consult date: 10/01/24 Requesting Physician: Orthopedics Primary Care Provider: Mone Melendez MD Consult Narrative Reason for consult: Medical management of comorbidities Narrative: Brent Ralph is a 59 year old male who presented to the hospital today for an elective L CARLIN. There were no surgical or anesthetic complications noted during procedure. Patient's H&P reviewed, PCP is Dr. Melendez at [facility]. Preoperative Hgb 12.4 Past medical history significant for: hyperlipidemia, noninsulin dependent DM2 with last A1C 7.5. Postoperative plan: Home with Review of Systems Status of ROS: Reports: 10 or more systems reviewed and unremarkable except as noted in History and below [facility] Medical History (Updated 12/26/24 @ 22:14 by Shannon Laura MD) Urinary retention ?R33.9 - Retention of urine, unspecified (ICD-10) Type 2 diabetes mellitus ?E11.9 - Type 2 diabetes mellitus without complications (ICD-10) Vertigo ?R42 - Dizziness and giddiness (ICD-10) Hearing loss ?H91.90 - Unspecified hearing loss, unspecified ear (ICD-10) Osteoarthritis of right hip ?M16.11 - Unilateral primary osteoarthritis, right hip (ICD-10) Osteoarthritis of left hip ?M16.12 - Unilateral primary osteoarthritis, left hip (ICD-10) Chronic low back pain ?M54.50 - Low back pain, unspecified (ICD-10) ?G89.29 - Other chronic pain (ICD-10) RIVER (obstructive sleep apnea) ?G47.33 - Obstructive sleep apnea (adult) (pediatric) (ICD-10) Depression ?F32.A - Depression, unspecified (ICD-10) Hypertension ?I10 - Essential (primary) hypertension (ICD-10) Social anxiety disorder ?F40.10 - Social phobia, unspecified (ICD-10) Lumbar facet arthropathy ?M47.816 - Spondylosis without myelopathy or radiculopathy, lumbar region (ICD-10) Lumbar spondylosis ?M47.816 - Spondylosis without myelopathy or radiculopathy, lumbar region (ICD-10) Lumbar radiculopathy ?M54.16 - Radiculopathy, lumbar region (ICD-10) Chronic bilateral low back pain without sciatica ?M54.50 - Low back pain, unspecified (ICD-10) ?G89.29 - Other chronic pain (ICD-10) Tinnitus, bilateral ?H93.13 - Tinnitus, bilateral (ICD-10) Allergic rhinitis, cause unspecified ?J30.9 - Allergic rhinitis, unspecified (ICD-10) Surgical History (Updated 12/26/24 @ 22:14 by Shannon Laura MD) History of left hip replacement ?Z96.642 - Presence of left artificial hip joint (ICD-10) History of total right hip arthroplasty (10/01/24) ?Z96.641 - Presence of right artificial hip joint (ICD-10) History of arthroscopy of right shoulder (~2009) ?Z98.890 - Other specified postprocedural states (ICD-10) S/P ACL reconstruction (1978) ?Z98.890 - Other specified postprocedural states (ICD-10) S/P arthroscopic knee surgery (1982) ?Z98.890 - Other specified postprocedural states (ICD-10) Family History (Updated 10/01/24 @ 18:00 by Ricardo Garza MD) Father Diabetes Melanoma Mother Stroke Social History (Updated 10/01/24 @ 18:01 by Ricardo Garza MD) Narrative: He lives with his in [place]. He does not smoke. He does not drink alcohol. What is your current living situation?: I presently have a place to live Problems where you live: no known problems In the past 12 months, utilities in danger of being shut off: no In past 12 months, lack of transportation kept you from medical appts, meetings, work, or getting things needed for daily living: no In the past 12 mos, have been you worried that your food would run out before you had money to buy more?: never true In the past 12 mos, the food you bought just didn't last and you didn't have money to buy more?: never true Smoking Status: Never smoker Do you use any of these nicotine containing products: None Second hand tobacco smoke exposure: No How often do you have a drink containing alcohol: never AUDIT-C Alcohol total score: 0 Non-prescribed substance use: denies use Caffeine: Yes Meds Home Medications and Allergies Home Medications ?Medication ?Instructions ?Recorded ?Confirmed ?Type atorvastatin 20 mg tablet 20 mg PO DAILY 08/01/24 12/26/24 History azelastine 137 mcg (0.1 %) nasal 2 spray intranasal BID 08/01/24 12/26/24 History spray celecoxib 200 mg capsule 200 mg PO BID 08/01/24 12/26/24 History Held on 12/26/24. Instructions: Resume on 01/01/25. fluticasone propionate 50 2 spray intranasal DAILY 08/01/24 12/24/24 History mcg/actuation nasal spray,suspension fluoxetine 40 mg capsule 40 mg PO QAM 08/07/24 12/26/24 History fexofenadine 180 mg tablet 180 mg PO DAILY 09/30/24 12/26/24 History ([employer] Allergy) acetaminophen 500 mg capsule 500 - 1,000 mg (1 - 2 x 500 mg) PO 10/01/24 12/26/24 Rx Q6H PRN pain #100 caps dulaglutide 3 mg/0.5 mL 3 mg subcut .week 10/01/24 12/26/24 History subcutaneous pen injector (Trulicity) glipizide 10 mg tablet 10 mg PO DAILY 10/01/24 12/26/24 History tamsulosin 0.4 mg capsule 0.4 mg PO QHS #30 caps 10/01/24 12/26/24 Rx aspirin 81 mg chewable tablet 81 mg PO BID for DVT prophylaxis 12/26/24 Rx (Aspirin Childrens) 30 days #60 tabs oxycodone 5 mg tablet 2.5 - 5 mg (0.5 - 1 x 5 mg) PO 12/26/24 Rx Q4-6H PRN Pain #42 tabs rivaroxaban 10 mg tablet (Xarelto) 10 mg PO DAILY DVT prophylaxis 4 12/26/24 Rx days #4 tabs sennosides 8.6 mg tablet (Senna 17.2 mg (2 x 8.6 mg) PO BID PRN 12/26/24 Rx Lax) constipation #100 tabs Home Medication Comments: Preoperatively he held his aspirin and Trulicity Allergies Allergy/AdvReac Type Severity Reaction Status Date / Time metformin AdvReac Mild Nausea Verified 12/26/24 09:46 hayfever Allergy Mild Uncoded 11/11/24 14:49 Exam Narrative: Exam Narrative: GEN: Alert and answering questions appropriately HEENT: EOMIs bilaterally, no scleral icterus CV: RRR R: LCTA bilaterally Ext: Bilateral lower extremity SCDs Skin: No concerning skin lesions or rashes on exposed skin Neuro: Nonfocal Psych: Appropriate Const: Vital Signs, click to edit/add: Vital Signs - 24 hr 12/26/24 10:33 12/26/24 11:47 12/26/24 11:55 Temperature 99.0 F Pulse Rate 59 L 55 L 54 L Respiratory Rate 20 20 20 Blood Pressure 150/88 H 175/89 H 166/89 H Pulse Oximetry 97 97 97 Oxygen Delivery Me thod Room Air Nasal Cannula Nasal Cannula Oxygen Flow Rate 2 2 12/26/24 12:01 12/26/24 14:22 12/26/24 14:27 Temperature 97.5 F L 97.5 F L Pulse Rate 58 L 71 70 Respiratory Rate 20 12 12 Blood Pressure 144/91 H 178/81 H 141/75 H Pulse Oximetry 99 97 98 Oxygen Delivery Me thod Nasal Cannula Room Air Room Air Oxygen Flow Rate 2 12/26/24 14:30 12/26/24 14:35 12/26/24 14:40 Temperature 97.5 F L 97.5 F L 97.5 F L Pulse Rate 70 70 67 Respiratory Rate 12 12 12 Blood Pressure 137/78 154/86 H 146/88 H Pulse Oximetry 98 99 98 Oxygen Delivery Me thod Room Air Room Air Room Air Oxygen Flow Rate 12/26/24 14:45 12/26/24 14:50 Temperature 97.1 F L 97.1 F L Pulse Rate 66 66 Respiratory Rate 12 12 Blood Pressure 146/72 H 141/81 H Pulse Oximetry 98 98 Oxygen Delivery Me thod Room Air Room Air Oxygen Flow Rate Documenting provider has reviewed patient's vital signs: yes Assessment and Plan Assessment and plan (1) History of left hip replacement: Problem comment: - 12/26/24, Dr. Whiting Status: Acute (2) Postoperative vomiting: Problem comment: - has had this after previous surgeries, treat symtpoms and slowly advance diet Status: Acute (3) RIVER (obstructive sleep apnea): Problem comment: Home CPAP Status: Acute (4) Type 2 diabetes mellitus: Problem comment: - last A1C 7.5 Status: Acute Plan - pain management and prophylaxis per orthopedic surgery team - continue home medications for comorbidities - anticipate routine postoperative course Total Time Spent Total Time Spent: Total time spent today is 50 minutes in reviewing outside records and coordination of care and discussing with patient, his and other providers ongoing management of above medical problems
[2024-12-26] MEDS: CEFAZOLIN 2 GM in 0.9 % SODIUM CHLORIDE Mini-bag 100 ML IVPB (18:47)
[2024-12-26] MEDS: ONDANSETRON 2 MG/ML inj 4 MG IVP (18:48)
--- NOTE | 2024-12-26 20:49 | PC.NURSE ---
Nursing Care Hours: [id number] Pt arrived to unit in stable condition. Pedal pulses present. VSS. Emesis x2, treated with IV antiemetics and cool wash cloth. Pt has antiemetic patch behind R ear still. Limited PO intake. Pain treated with IV and PO meds. Up to bathroom x2 with little output.
[2024-12-26] MEDS: TAMSULOSIN HCL 0.4 MG CAPSULE PO (21:09)
[2024-12-26] MEDS: SENNOSIDES 1 TAB TABLET 2 TAB PO (21:09)
[2024-12-26] MEDS: INSULIN ASPART 100 UNIT/ML SUBCUT (21:10)
[2024-12-27 00:13] VITALS: BP 157/89; PULSE 82; RESP 18; TEMP 36.4; O2SAT 96
[2024-12-27] MEDS: CEFAZOLIN 2 GM in 0.9 % SODIUM CHLORIDE Mini-bag 100 ML IVPB (03:34)
[2024-12-27] MEDS: ACETAMINOPHEN 500 MG TABLET 1000 MG PO ×2 (03:34→09:56)
[2024-12-27 03:40] VITALS: BP 164/80; PULSE 82; RESP 18; TEMP 37; O2SAT 96
[2024-12-27 06:32] LABS: Hematocrit* 34.1 % (37.0-53.0); Hemoglobin* 11.5 gm/dL (13.5-17.5); Immature Granulocytes Abs Auto 0.03 K/uL (0.00-0.30); Immature Granulocytes Pct Auto 0.3 %; Mean Corpuscular HGB Conc 34 gm/dL (32-36); Mean Corpuscular Hemoglobin 29 pg (26-34); Mean Corpuscular Volume 86 fL (80-100); RDW Coefficient of Variation % 13.7 % (11.5-15.5); Red Blood Count* 3.98 m/uL (4.30-5.90); White Blood Count* 10.82 K/uL (4.50-11.00)
[2024-12-27 06:33] LABS: Lymphocytes Absolute Auto 0.70 K/uL (0.90-2.90); Slide Review Reflex No
--- NOTE | 2024-12-27 06:54 | PC.NURSE ---
End of shift:?Pt pleasant,?alert?and oriented.?VSS.?Pain rated 2-7/10, prn oxy provided, pt stated improvement. Pt?stated?nausea and had one episode?of emesis, though refused?Zofran.?Pt did state nausea?subsided?throughout shift.?Dressings C/D/I.?Encouraged ice pack to op site.?Up with SBA,?walker?and gait belt.?Pt in bed, appears to be resting, call light within reach.
[2024-12-27 07:41] VITALS: BP 147/84; PULSE 87; RESP 18; TEMP 36.8; O2SAT 95
[2024-12-27] MEDS: ONDANSETRON 2 MG/ML inj 4 MG IVP (08:04)
[2024-12-27] MEDS: INSULIN ASPART 100 UNIT/ML SUBCUT (08:04)
[2024-12-27] MEDS: SENNOSIDES 1 TAB TABLET 2 TAB PO (08:38)
[2024-12-27] MEDS: FLUOXETINE HCL 20 MG CAPSULE 40 MG PO (08:38)
[2024-12-27] MEDS: RIVAROXABAN 10 MG TABLET PO (08:38)
[2024-12-27] MEDS: ATORVASTATIN CALCIUM 10 MG TABLET 20 MG PO (08:39)
[2024-12-27 08:41] VITALS: PULSE 87; RESP 18; O2SAT 95
[2024-12-27 10:39] VITALS: BP 132/66; PULSE 86; RESP 16; TEMP 37.1; O2SAT 93
--- NOTE | 2024-12-27 12:31 | PC.NURSE ---
shift note: pt AOx4. VSS. Afebrile. Pt dressing on L hip is C/D/I. pt verbalizes pain >4/10 on pain scale, prn med given -see EMAR. pt reported some nausea; prn med given. Denied N/V after eating and working with physical and occupational therapies. tolerating regular diet. pt voiding in bathroom. up to BR 2/ SBA , gait belt & walker. active ice applied. RN educated pt and his on medications, mobility, follow-up appts., s & s of worsening symptoms or infection. IV access removed. scopolamine med patch removed by RN and discarded in med room prior to d/c. pt wheeled out in W/C by RN, driven home in personal vehicle by .
--- NOTE | 2024-12-27 12:56 | PM.ORPN ---
Subjective Subjective Time Seen by Provider: 07:55 Date Seen: 12/27/24 Principal diagnosis: Status post left hip replacement Interval history: Brent had nausea and vomiting last evening after arriving at [facility] surg. He is comfortable. Some thigh tenderness. This has resolved. He will discharge to home today Ortho Exam Narrative Exam Narrative: Alert and oriented x3. Patient is in no acute distress. Converses without labored breathing. Hearing is grossly intact. Ambulates with a walker. Examination of the left hip shows the dressing is intact. No erythema or warmth or sign of infection. Mild edema. Tender anterior thigh. CMS intact left lower extremity. Calves are soft and nontender. Const Vital Signs, click to edit/add: Vital Signs - 24 hr 12/26/24 14:22 12/26/24 14:27 12/26/24 14:30 Temperature 97.5 F L 97.5 F L 97.5 F L Pulse Rate 71 70 70 Pulse Rate [Right Pulse Oximeter] Respiratory Rate 12 12 12 Blood Pressure 178/81 H 141/75 H 137/78 Blood Pressure [Left Arm] Pulse Oximetry 97 98 98 Oxygen Delivery Method Room Air Room Air Room Air 12/26/24 14:35 12/26/24 14:40 12/26/24 14:45 Temperature 97.5 F L 97.5 F L 97.1 F L Pulse Rate 70 67 66 Pulse Rate [Right Pulse Oximeter] Respiratory Rate 12 12 12 Blood Pressure 154/86 H 146/88 H 146/72 H Blood Pressure [Left Arm] Pulse Oximetry 99 98 98 Oxygen Delivery Method Room Air Room Air Room Air 12/26/24 14:50 12/26/24 15:00 12/26/24 15:15 Temperature 97.1 F L Pulse Rate 66 Pulse Rate [Right Pulse Oximeter] 65 62 Respiratory Rate 12 14 Blood Pressure 141/81 H Blood Pressure [Left Arm] 141/74 H 134/78 Pulse Oximetry 98 94 94 Oxygen Delivery Method Room Air Room Air Room Air 12/26/24 15:45 12/26/24 16:00 12/26/24 16:30 Temperature Pulse Rate Pulse Rate [Right Pulse Oximeter] 63 61 60 Respiratory Rate Blood Pressure Blood Pressure [Left Arm] 145/81 H 135/76 140/78 H Pulse Oximetry 96 96 97 Oxygen Delivery Method Room Air 12/26/24 17:00 12/26/24 18:00 12/26/24 19:00 Temperature Pulse Rate Pulse Rate [Right Pulse Oximeter] 60 62 87 Respiratory Rate Blood Pressure Blood Pressure [Left Arm] 138/78 133/73 151/85 H Pulse Oximetry 91 96 98 Oxygen Delivery Method Room Air Room Air 12/26/24 20:07 12/26/24 21:07 12/26/24 23:00 Temperature 98.6 F 98.3 F Pulse Rate Pulse Rate [Right Pulse Oximeter] 84 75 Respiratory Rate 18 18 Blood Pressure Blood Pressure [Left Arm] 156/89 H 156/85 H Pulse Oximetry 99 96 95 Oxygen Delivery Method Room Air Room Air Room Air 12/26/24 23:00 12/27/24 00:13 12/27/24 03:40 Temperature 97.6 F 98.6 F Pulse Rate Pulse Rate [Right Pulse Oximeter] 82 82 Respiratory Rate 18 18 18 Blood Pressure Blood Pressure [Left Arm] 157/89 H 164/80 H Pulse Oximetry 96 96 Oxygen Delivery Method Room Air Room Air 12/27/24 07:41 12/27/24 08:41 12/27/24 08:41 Temperature 98.3 F Pulse Rate Pulse Rate [Right Pulse Oximeter] 87 87 Respiratory Rate 18 18 18 Blood Pressure Blood Pressure [Left Arm] 147/84 H Pulse Oximetry 95 95 Oxygen Delivery Method Room Air Room Air 12/27/24 10:39 Temperature 98.7 F Pulse Rate Pulse Rate [Right Pulse Oximeter] 86 Respiratory Rate 16 Blood Pressure Blood Pressure [Left Arm] 132/66 Pulse Oximetry 93 Oxygen Delivery Method Room Air Assessment and Plan Assessment and plan (1) History of left hip replacement: Problem details: - 12/26/24, Dr. Whiting Status: Acute Assessment and Plan: Plan for discharge is today, and when they meets discharge criteria. DVT prophylaxis upon discharge [includes Xarelto 10mg daily for a total of 5 days, then Aspirin 81mg twice daily for 30 days]. Remove dressing 1 week. Observe wound and phone Orthopedics with any questions or concerns Use Ice on operative hip unrestricted. Return to clinic in 1-2 weeks as scheduled for a wound check Return to clinic in 6 weeks with surgeon Minimize narcotic use. Wean off and discontinue soon as possible. Activities as tolerated. No strenuous activity. Attend outpt PT
== END 2024-12-27 11:55 | disposition home or self-care (01) ==
LOC: OR 09:39 → MEDSURG 09:39
PROVIDERS: Family Medicine; PCP Internal Medicine; Visit Provider Orthopaedic Surgery Sports Medicine
PROC: (CPT 27130; principal; 2024-12-26 12:00)
DX: M16.12 Unilateral primary osteoarthritis, left hip (principal); G89.18 Other acute postprocedural pain; G47.33 Obstructive sleep apnea (adult) (pediatric); E11.9 Type 2 diabetes mellitus without complications; R11.10 Vomiting, unspecified; E78.5 Hyperlipidemia, unspecified; Z96.641 Presence of right artificial hip joint; Z79.85 Long-term (current) use of injectable non-insulin antidiabetic drugs; Z79.82 Long term (current) use of aspirin
CPT/HCPCS: 27130; 01214; 36415; 64450; 73501; 73502; 76942; 82962; 85025; 86850; 86900; 86901; 97110; 97116; 97161; 97165; 97530; A9270; C1776; J0330; J0690; J1171; J1815; J2250; J2405; J2704; J2710; J2795; J3010; J3490; J7120